=== PATIENT | female | born 1950 | race Two or more races ===

== ENCOUNTER 2017-11-10 07:11 | Outpatient (CLI) | payer OTHER ==
[~2017-11-10 07:11] MED LIST: ACYCLOVIR800 MG; COZAAR100 MG; Cozaar PO; DOXY PO; GABAPENTIN300 MG; GLUCOPHAGE XR500 MG; Glucophage PO; METFORMIN HCL500 MG; NITROGLYCERIN0.4 MG; OXYC1TAB9 PO; PERCOCET 5/3251 TAB PO; PROZAC40 MG PO; TYLENOL EXTRA500 MG PO; VOLTAREN-XR100 MG PO; ZIAC 10/6.25 MG1 TAB PO
== END 2017-11-10 07:22 | disposition home or self-care (01) ==
LOC: NUCLEAR 07:11
DX: I11.9 Hypertensive heart disease without heart failure (principal); I25.10 Atherosclerotic heart disease of native coronary artery without angina pectoris; R07.89 Other chest pain
CPT/HCPCS: J0153; A9500; 93017; 78452

== ENCOUNTER 2018-02-26 10:36 | Emergency (ER) | payer OTHER ==
[~2018-02-26] VITALS: Ht 167.6 cm; Wt 74.8 kg
[2018-02-26] MEDS ORDERED: COZAAR100 MG PO (10:46)
[2018-02-26] MEDS ORDERED: LIPITOR20 MG PO (10:46)
[2018-02-26] MEDS ORDERED: ASPIRIN81 MG PO (10:46)
[2018-02-26] MEDS ORDERED: TOPROL XL25 M1 PO (10:47)
== END 2018-02-26 17:49 | disposition home or self-care (01) ==
LOC: ER 10:36
DX: K52.9 Noninfective gastroenteritis and colitis, unspecified (principal)

== ENCOUNTER 2018-10-12 09:18 | Emergency (ER) | payer OTHER ==
[~2018-10-12] VITALS: Ht 167.6 cm; Wt 77.1 kg
[~2018-10-12 09:18] MED LIST changes: +ASPIRIN81 MG PO; +COZAAR100 MG PO; +LIPITOR20 MG PO; +TOPROL XL25 M1 PO
== END 2018-10-12 12:49 | disposition home or self-care (01) ==
LOC: ER 09:18
DX: I16.0 Hypertensive urgency (principal); I10 Essential (primary) hypertension

== ENCOUNTER 2019-07-13 11:16 | Outpatient (CLI) | payer OTHER | END 2019-07-13 11:50 | disposition home or self-care (01) | LOC: NUCLEAR 11:16 | DX: I80.3 Phlebitis and thrombophlebitis of lower extremities, unspecified (principal); I73.9 Peripheral vascular disease, unspecified ==

== ENCOUNTER 2019-07-14 10:59 | Outpatient (CLI) | payer OTHER | END 2019-07-14 12:33 | disposition home or self-care (01) | LOC: NUCLEAR 10:59 | DX: I87.2 Venous insufficiency (chronic) (peripheral) (principal); I80.3 Phlebitis and thrombophlebitis of lower extremities, unspecified; I73.9 Peripheral vascular disease, unspecified ==

== ENCOUNTER 2020-06-27 12:30 | Outpatient (CLI) | payer OTHER | END 2020-06-27 12:45 | disposition home or self-care (01) | LOC: MRI 12:30 | PROVIDERS: ATTEND Psychiatry & Neurology Clinical Neurophysiology | DX: G93.89 Other specified disorders of brain (principal); G30.1 Alzheimer's disease with late onset; F01.50 Vascular dementia, unspecified severity, without behavioral disturbance, psychotic disturbance, mood disturbance, and anxiety | CPT/HCPCS: 70551 ==

== ENCOUNTER 2020-07-11 09:47 | Outpatient (CLI) | payer OTHER | END 2020-07-11 09:53 | disposition home or self-care (01) | LOC: NUCLEAR 09:47 | PROVIDERS: ATTEND General Practice | DX: M79.604 Pain in right leg (principal); M79.605 Pain in left leg; I87.2 Venous insufficiency (chronic) (peripheral) ==

== ENCOUNTER 2020-10-04 13:05 | Outpatient (CLI) | payer OTHER | END 2020-10-04 15:00 | disposition home or self-care (01) | LOC: LAB 13:05 | PROVIDERS: ATTEND Urology | DX: N30.00 Acute cystitis without hematuria (principal) ==

== ENCOUNTER 2020-12-25 08:55 | Emergency (ER) | payer OTHER ==
[~2020-12-25] VITALS: Ht 167.6 cm; Wt 72.6 kg
[2020-12-25] MEDS ORDERED: MACROBID 100 M100 MG PO (17:30)
[2020-12-25] MEDS ORDERED: INTESTINEX680 M1 PO (17:30)
== END 2020-12-25 18:04 ==
LOC: ER 08:55
DX: N39.0 Urinary tract infection, site not specified (principal)

== ENCOUNTER 2021-12-11 09:34 | Emergency (ER) | payer OTHER ==
[~2021-12-11] VITALS: Ht 170.2 cm; Wt 70.3 kg
[~2021-12-11 09:34] MED LIST changes: +INTESTINEX680 M1 PO; +MACROBID 100 M100 MG PO
== END 2021-12-11 13:16 | disposition home or self-care (01) ==
LOC: ER 09:34
DX: R42 Dizziness and giddiness (principal); I10 Essential (primary) hypertension; E78.5 Hyperlipidemia, unspecified

== ENCOUNTER 2022-07-30 10:30 | Outpatient (CLI) | payer OTHER | END 2022-07-30 10:45 | disposition home or self-care (01) | LOC: MAMO-SONO 10:30 | PROVIDERS: ATTEND Internal Medicine | DX: I10 Essential (primary) hypertension (principal); M54.59 Other low back pain; E78.9 Disorder of lipoprotein metabolism, unspecified; E03.9 Hypothyroidism, unspecified; E55.9 Vitamin D deficiency, unspecified; G31.1 Senile degeneration of brain, not elsewhere classified ==

== ENCOUNTER 2022-07-31 13:13 | Outpatient (CLI) | payer OTHER | END 2022-07-31 13:16 | disposition home or self-care (01) | LOC: NUCLEAR 13:13 | PROVIDERS: ATTEND Internal Medicine | DX: M81.0 Age-related osteoporosis without current pathological fracture (principal) ==

== ENCOUNTER 2023-03-24 08:55 | Outpatient (CLI) | payer OTHER | END 2023-03-24 08:56 | disposition home or self-care (01) | LOC: NUCLEAR 08:55 | PROVIDERS: ATTEND Internal Medicine | DX: I70.0 Atherosclerosis of aorta (principal) ==

== ENCOUNTER 2023-03-24 10:29 | Outpatient (CLI) | payer OTHER | END 2023-03-24 10:52 | disposition home or self-care (01) | LOC: RAD 10:29 | PROVIDERS: ATTEND Internal Medicine | DX: E04.2 Nontoxic multinodular goiter (principal); M15.0 Primary generalized (osteo)arthritis ==

== ENCOUNTER 2024-02-22 12:38 | Emergency (ER) | payer OTHER ==
[~2024-02-22] VITALS: Ht 165.1 cm; Wt 63.5 kg
[2024-02-22] MEDS ORDERED: COZAAR25 MG PO (13:03)
[2024-02-22] MEDS ORDERED: TRAZODONE HCL50 MG PO (13:03)
[2024-02-22] MEDS ORDERED: ZOLOFT50 MG PO (13:03)
[2024-02-22] MEDS ORDERED: EXELON1 EACH TD (13:04)
[2024-02-22] MEDS ORDERED: MIRTAZAPINE30 M1 PO (13:05)
[2024-02-22] MEDS ORDERED: TRAMADOL HCL 50 MG TABLET PO ONE (13:45)
== END 2024-02-22 15:15 | disposition home or self-care (01) ==
LOC: ER 12:39
DX: S09.90XA Unspecified injury of head, initial encounter (principal); X58.XXXA Exposure to other specified factors, initial encounter; Y93.9 Activity, unspecified; Y92.9 Unspecified place or not applicable; Y99.9 Unspecified external cause status

== ENCOUNTER 2024-04-26 10:33 | Outpatient (CLI) | payer OTHER ==
[~2024-04-26 10:33] MED LIST changes: +COZAAR25 MG PO; +EXELON1 EACH TD; +MIRTAZAPINE30 M1 PO; +TRAZODONE HCL50 MG PO; +ZOLOFT50 MG PO
== END 2024-04-26 10:51 | disposition home or self-care (01) ==
LOC: TOM 10:33
PROVIDERS: ATTEND Internal Medicine Cardiovascular Disease
DX: I71.20 Thoracic aortic aneurysm, without rupture, unspecified (principal); I11.9 Hypertensive heart disease without heart failure; E11.9 Type 2 diabetes mellitus without complications
CPT/HCPCS: 71275; Q9965

== ENCOUNTER → 2024-09-20 08:00 | Outpatient (CLI) | payer OTHER | END | disposition home or self-care (01) | LOC: MAMO-SONO 08:00 | PROVIDERS: ATTEND Internal Medicine | DX: N64.4 Mastodynia (principal); R92.8 Other abnormal and inconclusive findings on diagnostic imaging of breast; Z12.31 Encounter for screening mammogram for malignant neoplasm of breast ==